=== PATIENT | male | born 1955 | race Caucasian/White ===

== ENCOUNTER 2017-08-16 17:46 | Emergency (ER) | payer OTHER, BC ==
[~2017-08-16] VITALS: Ht 177.8 cm; Wt 91.6 kg
[~2017-08-16 17:46] MED LIST: FLEXERIL10 MG PO; MOTRIN600 MG PO; ULTRAM50 MG PO
[2017-08-16 19:36] VITALS: BP 164/75
== END 2017-08-16 19:46 | disposition home or self-care (01) ==
LOC: EME 17:46
DX: S06.0X0A Concussion without loss of consciousness, initial encounter (principal); S00.81XA Abrasion of other part of head, initial encounter; W22.8XXA Striking against or struck by other objects, initial encounter; Y99.0 Civilian activity done for income or pay; E11.9 Type 2 diabetes mellitus without complications; Z79.82 Long term (current) use of aspirin; E78.5 Hyperlipidemia, unspecified; I10 Essential (primary) hypertension; Z87.891 Personal history of nicotine dependence
CPT/HCPCS: 70450; 70486; 99281; 99285